=== PATIENT | male | born 1960 | race Caucasian/White ===

== ENCOUNTER → 2016-03-27 | Outpatient (CLI) | payer BC | LOC: RAD 09:54 | PROVIDERS: ATTEND Internal Medicine Hematology & Oncology | DX: R07.81 Pleurodynia (principal) | CPT/HCPCS: 71020 ==

== ENCOUNTER → 2016-05-02 | Outpatient (CLI) | payer BC | LOC: RAD 08:32 | PROVIDERS: ATTEND Surgery | DX: J90 Pleural effusion, not elsewhere classified (principal) | CPT/HCPCS: 71020 ==

== ENCOUNTER 2016-07-03 07:42 | Outpatient (RCR) | payer BC ==
[~2016-07-03 07:42] MED LIST: HYDR-3702 PO; LVT.05T PO; MINO100C2 PO; MINO50TA PO; OMG1KC PO
[2016-07-03 07:56] LABS: MEAN CORPUSCULAR HEMOGLOBIN 30.1 PG (26.0-34.0); MEAN CORPUSCULAR VOLUME 91 FL (80-100); MEAN PLATELET VOLUME 9.1 FL (6.0-9.5); PLATELET COUNT 164 10^3uL (150-450); WHITE BLOOD COUNT 7.26 10^3uL (4.0-11.0)
[2016-07-03 08:09] LABS: BAND NEUTROPHILS % 1 % (0-6); EOSINOPHILS % 2 % (0-4); LYMPHOCYTES # 0.7 #; MONOCYTES # 0.6 #; MONOCYTES % 8 % (3-11); RBC MORPH NORMAL (NORMAL); SEGMENTED NEUTROPHILS % 80 % (51-67); TOTAL CELLS COUNTED 100
[2016-07-03 08:30] LABS: ALBUMIN 4.3 g/dL (3.4-5.0); ANION GAP 15.1 MEQ/L (3-15); CALCULATED IONIZED CALCIUM 3.9 mg/dL (3.8-4.6); TOTAL PROTEIN 7.1 g/dL (6.4-8.5)
== END 2016-07-25 19:15 | disposition home or self-care (01) ==
LOC: LAB 07:42
PROVIDERS: ATTEND Internal Medicine Hematology & Oncology
DX: C34.2 Malignant neoplasm of middle lobe, bronchus or lung (principal)
CPT/HCPCS: 36415; 80053; 83615; 83735; 84100; 85007; 85027

== ENCOUNTER → 2016-07-04 | Outpatient (CLI) | payer BC ==
--- NOTE | 2016-07-04 11:11 | Diagnostic Imaging Report ---
PROCEDURE: CT chest pelvis with and abdomen with and without contrast. TECHNIQUE: Multiple contiguous axial images were obtained through the chest, abdomen and pelvis after uneventful bolus administration of intravenous contrast. Precontrast acquisitions were acquired through the abdomen. INDICATION: Lung cancer surveillance. COMPARISON: CT chest of 12/26/2015. CT CHEST FINDINGS: Trace retained secretions within the trachea are noted. Architectural distortion with volume loss along the medial aspect of the right lung is compatible with post treatment change. The degree of volume loss has increased, also compatible with post treatment change. Along the anterior aspect of the right middle lobe, the area of posttreatment change has a somewhat nodular configuration measuring 2.1 x 1.3 cm (which previously measured approximately 1.8 x 1.2 cm from prior examination). No pulmonary mass or nodule in the left lung to suggest contralateral metastasis. A 4 mm nodule along the inferior aspect of the right major fissure is similar to prior examination. There has been development of a small right pleural effusion. No left pleural effusion. No pleural nodularity is seen on the right. There is a left IJ Port-A-Cath which has tip terminating in the lower SVC. No supraclavicular or axillary lymphadenopathy. No mediastinal, discrete hilar or juxtaphrenic lymphadenopathy. There remains soft tissue attenuation in the right hilar region which could be due to post treatment scar and atelectasis. Heart is normal in size without pericardial effusion. Normal caliber thoracic aorta. No focal concerning osseous lesion in the thorax to suggest focal skeletal metastasis. IMPRESSION: 1. Post treatment/radiation changes in the medial aspect of the right lung expected progressive volume loss. However, along the anterior most aspect of the posttreatment change in the right middle lobe, there is a more nodular configuration, which may represent developing rounded type atelectasis. However, close attention on followup is advised as recurrent neoplasm could be present. 2. New small right pleural effusion. This could be posttreatment in nature secondary to lymphatics alteration of treatment. Attention on followup is suggested. 3. No intrathoracic lymphadenopathy. CT ABDOMEN AND PELVIS FINDINGS: No free fluid or free air in the abdomen or pelvis. Evaluation of the pelvis is mildly limited by streak artifact from bilateral hip arthroplasties. Stable well-circumscribed cyst in the peripheral right hepatic lobe. No focal hepatic lesion that would suggest metastasis. The gallbladder and spleen are normal. Pancreas and adrenals are also normal. There are a few exophytic hypodensities arising from both kidneys which may represent cysts. One of these lesions is located in the posterior pole of the right kidney and has precontrast attenuation of 35 HU, and may represent a complicated cyst. However, neoplastic lesion cannot be entirely excluded. No obstructive uropathy. Urinary bladder is distended without discrete wall thickening allowing for streak artifact. No pericolonic inflammatory changes within the visible colon. There appears to be sigmoid diverticulosis without evidence of diverticulitis. No bowel obstruction. No abdominal or pelvic lymphadenopathy. Normal caliber abdominal aorta. Bilateral total hip arthroplasties. No focal osseous lesion that would suggest focal skeletal metastasis. IMPRESSION: 1. No evidence of intra-abdominal metastatic disease. 2. Exophytic hypodensity in the right kidney measures up to 1.1 cm and likely represents a complicated/hemorrhagic cyst. However, neoplastic lesion could have this appearance. Consider renal ultrasound for further evaluation. Dictated by: Dictated on workstation # [id number]
== END ==
LOC: RAD 08:50
PROVIDERS: ATTEND Internal Medicine Hematology & Oncology
DX: C34.2 Malignant neoplasm of middle lobe, bronchus or lung (principal)
CPT/HCPCS: 71260; 74178; Q9967

== ENCOUNTER → 2016-07-20 | Outpatient (CLI) | payer BC ==
--- NOTE | 2016-07-20 09:19 | Diagnostic Imaging Report ---
INDICATION: Renal cysts. Right kidney measures 9.4 x 4.4 x 4.5 cm. Left kidney measures 11.1 x 5.3 x 4.7 cm. There is an 8-mm cyst in the lateral aspect of the right kidney. There is a 14-mm cyst medially in the left kidney. There is no solid mass, calculus, or hydronephrosis. Urinary bladder appears normal. Both ureteral jets seen. IMPRESSION: Negative bilateral renal ultrasound. Dictated by: Dictated on workstation # [id number]
== END ==
LOC: RAD 07:13
PROVIDERS: ATTEND Internal Medicine Hematology & Oncology
DX: N28.1 Cyst of kidney, acquired (principal)
CPT/HCPCS: 76770